=== PATIENT | male | born 1985 | race Caucasian/White ===

== ENCOUNTER 2018-09-03 09:28 | Emergency (ER) | payer BC ==
[~2018-09-03] VITALS: Ht 180.3 cm; Wt 90.4 kg
[2018-09-03] MEDS ORDERED: IV NORMAL SALINE 1,000ML 1,000 ML IV SCH (09:53)
[2018-09-03] MEDS ORDERED: IPRATRPIUM/ALBUTEROL 0.5/2.5MG 3 ML NEBU. NEB ONE (10:00)
[2018-09-03] MEDS ORDERED: methylPREDNISolone SOD SUCC PF 125 MG/2 ML VIAL. IV ONE (10:00)
--- NOTE | 2018-09-03 10:10 | PHYS DOC ---
Past History Past Medical History: Asthma Smoking: Non-smoker Adult General Chief Complaint Chief Complaint: COUGH HPI HPI Patient is a 33 year old male who presents with complaining of cough. Patient complaining of cough for one month that Getting better. Patient states he had nonproductive cough that changed to productive cough for the last few days with green and yellow sputum. Patient states he had fever of 101 last week. Patient complaining of shortness of breath and substernal chest soreness during episodes of cough. Patient states he was seen by his primary care physician last week and was started on prednisone 3 East ago without change of his problem. Patient complaining of headache and sore throat without vomiting, diarrhea, earache. Patient has had history of asthma but he states his asthma attack is different usually. Review of Systems Review of Systems Constitutional: Reports fever Eyes: Denies change in visual acuity, redness, or eye pain [] HENT: Reports nasal congestion and sore throat Respiratory: Reports cough and shortness of breath Cardiovascular: No additional information not addressed in HPI [] GI: Denies abdominal pain, nausea, vomiting, bloody stools or diarrhea [] : Denies dysuria or hematuria [] Musculoskeletal: Denies back pain or joint pain [] Integument: Denies rash or skin lesions [] Neurologic: Denies headache, focal weakness or sensory changes [] Endocrine: Denies polyuria or polydipsia [] All other systems were reviewed and found to be within normal limits, except as documented in this note. Current Medications Current Medications Current Medications Medications (Trade) Dose Ordered Sig/Ceasar Start Time Stop Time Status Last Admin Dose Admin Albuterol/ Ipratropium (Duoneb) 3 ml 1X ONCE 09/03/18 10:00 09/03/18 10:01 UNV 09/03/18 10:01 3 ML Methylprednisolone Sodium Succinate (SOLU-Medrol 125MG VIAL) 125 mg 1X ONCE 09/03/18 10:00 09/03/18 10:01 UNV 09/03/18 10:01 125 MG Sodium Chloride 1,000 ml @ 1,000 mls/hr Q1H 09/03/18 09:53 09/03/18 10:52 UNV 09/03/18 10:02 1,000 MLS/HR Allergies Allergies Allergies Coded Allergies Type Severity Reaction Last Updated Verified No Known Drug Allergies 09/03/18 No Physical Exam Physical Exam Constitutional: Well developed, well nourished, mild distress, non-toxic appearance. [] HENT: Normocephalic, atraumatic, bilateral external ears normal, oropharynx moist, pharyngeal erythema, no oral exudates, nose normal. [] Eyes: PERRLA, EOMI, conjunctiva normal, no discharge. [] Neck: Normal range of motion, no tenderness, supple, no stridor. [] Cardiovascular:Heart rate regular rhythm, no murmur [] Lungs & Thorax: Bilateral mild rhonchi without respiratory distress Abdomen: Bowel sounds normal, soft, no tenderness, no masses, no pulsatile masses. [] Skin: Warm, dry, no erythema, no rash. [] Back: No tenderness, no CVA tenderness. [] Extremities: No tenderness, no cyanosis, no clubbing, ROM intact, no edema. [] Neurologic: Alert and oriented X 3, normal motor function, normal sensory function, no focal deficits noted. [] Psychologic: Affect normal, judgement normal, mood normal. [] Current Patient Data Vital Signs Vital Signs Date Time Temp Pulse Resp B/P (MAP) Pulse Ox O2 Delivery O2 Flow Rate FiO2 09/03/18 10:05 99 Room Air EKG EKG [] Radiology/Procedures Radiology/[place] [address] IMAGING REPORT Signed PATIENT: FÉLIX GAMEZ ACCOUNT: [id number] : 1985 LOCATION: ER AGE: 33 SEX: M EXAM STATUS: REG ER ORD. PHYSICIAN: REINA PENNINGTON MD REASON: cough for one month PROCEDURE: CHEST PA & LATERAL CHEST PA LATERAL History: COUGH FOR 1 MONTH, FEVER, ASTHMA Comparison: None. Findings: The cardiomediastinal silhouette is normal. Pulmonary vasculature is normal. The lungs are clear. No pleural effusion or pneumothorax is seen. There is no acute bone abnormality. IMPRESSION: No acute cardiopulmonary process. Electronically signed by: Merrill Newman MD (09/03/2018 10:19 AM) [id number] DICTATED AND SIGNED BY: MERRILL NEWMAN MD DATE: 09/03/18 1019 CC: REINA PENNINGTON MD; SEBLE KINNEY ~ Course & Med Decision Making Course & Med Decision Making Pertinent Labs and Imaging studies reviewed. (See chart for details) Evaluation of patient in ER showed 33-year-old male patient with complaining of cough for one month that did not get better with layers and prednisone. Patient had unremarkable physical exam except for mild rhonchi. X-ray and labs was unremarkable. Patient treated with IV fluid, DuoNeb, Solu-Medrol and Rocephin in ER. Plan to discharge patient home with diagnosis of acute bronchitis and prescription of Zithromax and Tussionex. Dragon Disclaimer Dragon Disclaimer This electronic medical record was generated, in whole or in part, using a voice recognition dictation system. Departure Departure: Impression: Primary Impression: Acute bronchitis Additional Impression: Acute asthmatic bronchitis Disposition: HOME, SELF-CARE (at 1102) Condition: IMPROVED Referrals: SEBLE KINNEY (PCP) Patient Instructions: Acute Bronchitis, Asthma Attacks, Prevention Additional Instructions: Drink plenty of liquids Follow-up with your primary care physician in 3-5 days Return to ER if not getting better Continue home medication Scripts Azithromycin (ZITHROMAX) 250 Mg Tablet 1 PKG PO UD for infection, #1 PKG Prov: REINA PENNINGTON MD 09/03/18 Hydrocodone/Chlorphen P-Stirex (Tussionex Pennkinetic Susp) 115 Ml Suyapa.er.12h 5 ML PO BID for cough and congestion, #120 ML Prov: REINA PENNINGTON MD 09/03/18 Problem Qualifiers REINA PENNINGTON MD Sep 03, 2018 10:10
--- NOTE | 2018-09-03 10:23 | RAD ---
CHEST PA LATERAL History: COUGH FOR 1 MONTH, FEVER, ASTHMA Comparison: None. Findings: The cardiomediastinal silhouette is normal. Pulmonary vasculature is normal. The lungs are clear. No pleural effusion or pneumothorax is seen. There is no acute bone abnormality. IMPRESSION: No acute cardiopulmonary process. Electronically signed by: Merrill Newman MD (09/03/2018 10:19 AM) [id number]
[2018-09-03 10:36] LABS: BASO % 0 % (0-3); EOS % 0 % (0-3); HEMATOCRIT 40.6 % (39.0-53.0); LYMPH % 14 % (24-48); MEAN CORPUSCULAR HEMOGLOBIN 29 pg (25-35); MEAN CORPUSCULAR HGB CONC 34 g/dL (31-37); MEAN CORPUSCULAR VOLUME 85 fL (79-100); MONO # 0.2 x10^3/uL (0.0-1.1); MONO % 3 % (0-9); NEUT # 5.8 x10^3uL (1.8-7.7); NEUT % 83 % (31-73); PLATELET COUNT 258 x10^3/uL (140-400); RED BLOOD COUNT 4.78 x10^6/uL (4.30-5.70); RED CELL DISTRIBUTION WIDTH 12.3 % (11.5-14.5)
[2018-09-03] MEDS ORDERED: KETOROLAC 30 MG/ML VIAL. IV ONE (10:45)
[2018-09-03] MEDS ORDERED: IV NORMAL SALINE 50ML 50 ML ONE (10:45)
[2018-09-03] MEDS ORDERED: cefTRIAXone SODIUM 1 GM VIAL ONE (10:45)
[2018-09-03 10:47] LABS: ALBUMIN 3.9 g/dL (3.4-5.0); ALBUMIN/GLOBULIN RATIO 1.3 (1.0-1.7); CALCIUM 9.2 mg/dL (8.5-10.1); CREATININE 1.1 mg/dL (0.7-1.3); GFR 77.1; POTASSIUM 3.9 mmol/L (3.5-5.1); TOTAL BILIRUBIN 0.3 mg/dL (0.2-1.0); TOTAL PROTEIN 6.8 g/dL (6.4-8.2)
[2018-09-03] MEDS ORDERED: AZIT250T PO (11:07)
[2018-09-03] MEDS ORDERED: HYDR115S2 PO (11:07)
[2018-09-03 12:47] VITALS: BP 139/83
== END 2018-09-03 12:49 | disposition home or self-care (01) ==
LOC: ER 09:28
DX: J45.909 Unspecified asthma, uncomplicated (principal); J20.9 Acute bronchitis, unspecified
CPT/HCPCS: 36415; 71046; 80053; 85025; 94640; 96365; 96375; 99284; J0696; J1885; J2930; J7620; J7030

== ENCOUNTER → 2019-07-04 | Outpatient (CLI) | payer BC ==
[~2019-07-04] MED LIST: AZIT250T PO; BARIUM SULFATE 60% 355 ML SUSP PO ONE; HYDR115S2 PO
--- NOTE | 2019-07-04 12:19 | RAD ---
Small bowel series INDICATION: Persistent diarrhea. TECHNIQUE: A tree scout image was obtained. Thereafter, sequential imaging of the stomach and small bowel was performed immediately after ingestion of barium contrast material with overhead abdominal radiographs and at 20 and 40 minutes post oral contrast ingestion. Bilateral oblique views were also obtained. FINDINGS: Ear Nose Throat Surgeon view showed no free air, pathologic calcifications or retained contrast material from any previous administration. Images with enteric contrast show normal contour to the stomach with prompt filling of the duodenum, jejunum and ileum with a normal mucosal fold pattern. There is no evidence of a filling defect or mucosal edema shown. No stricturing or malrotation. Oblique views show an unremarkable appearance to the terminal ileum. The opacified large bowel is unremarkable in the visualized portions. IMPRESSION: Normal small bowel series. Electronically signed by: Zeeshan Fierro MD (07/04/2019 12:16 PM) [facility]
== END | disposition home or self-care (01) ==
LOC: RAD 08:15
PROVIDERS: ATTEND Internal Medicine Gastroenterology
DX: R19.7 Diarrhea, unspecified (principal)
CPT/HCPCS: 74250